=== PATIENT | female | born 1945 | race Native Hawaiian/Other Pacific Islander ===

== ENCOUNTER 2017-06-30 13:47 | Outpatient (CLI) | payer OTHER | END 2017-06-30 19:06 | disposition home or self-care (01) | LOC: RAD 13:47 | DX: M54.12 Radiculopathy, cervical region (principal) ==

== ENCOUNTER 2017-12-14 08:25 | Outpatient (CLI) | payer OTHER | END 2017-12-14 21:47 | disposition home or self-care (01) | LOC: MRI 08:25 | DX: M25.511 Pain in right shoulder (principal) ==

== ENCOUNTER 2018-08-27 09:30 | Outpatient (CLI) | payer OTHER | END 2018-08-27 21:26 | disposition home or self-care (01) | LOC: RAD 09:30 | DX: J20.8 Acute bronchitis due to other specified organisms (principal) ==

== ENCOUNTER 2020-08-24 08:21 | Outpatient (CLI) | payer OTHER | END 2020-08-24 19:15 | disposition home or self-care (01) | LOC: US 08:21 | PROVIDERS: ATTEND Nurse Practitioner Family | DX: R10.32 Left lower quadrant pain (principal) ==

== ENCOUNTER 2022-10-03 11:34 | Outpatient (CLI) | payer OTHER, MEDICARE ==
[2022-10-03 12:05] LABS: PLATELET COUNT 240 K/uL (152-353)
[2022-10-03 12:35] LABS: POTASSIUM 4.1 mmol/L (3.6-5.2)
== END 2022-10-03 19:31 | disposition home or self-care (01) ==
LOC: LAB 11:34
PROVIDERS: ATTEND Internal Medicine
DX: I10 Essential (primary) hypertension (principal); M19.90 Unspecified osteoarthritis, unspecified site; R82.998 Other abnormal findings in urine
CPT/HCPCS: 80053; 80061; 81000; 84439; 84443; 85027; 85652; 86431; 87088

== ENCOUNTER 2023-04-09 09:04 | Outpatient (CLI) | payer OTHER, MEDICARE ==
[2023-04-09 13:14] LABS: PLATELET COUNT 228 K/uL (152-353)
[2023-04-09 13:43] LABS: POTASSIUM 3.8 mmol/L (3.6-5.2)
== END 2023-04-09 20:35 | disposition home or self-care (01) ==
LOC: RAD 09:04 → LAB 09:04
PROVIDERS: ATTEND Internal Medicine
DX: Z00.00 Encounter for general adult medical examination without abnormal findings (principal); R05.2 Subacute cough; Z13.820 Encounter for screening for osteoporosis; Z79.899 Other long term (current) drug therapy; E55.9 Vitamin D deficiency, unspecified
CPT/HCPCS: 80053; 80061; 81002; 82306; 84439; 84443; 85027

== ENCOUNTER 2023-04-23 09:42 | Outpatient (CLI) | payer OTHER, MEDICARE | END 2023-04-23 20:02 | disposition home or self-care (01) | LOC: RAD 09:42 | PROVIDERS: ATTEND Internal Medicine | DX: Z13.820 Encounter for screening for osteoporosis (principal); N95.8 Other specified menopausal and perimenopausal disorders ==